=== PATIENT | female | born 1950 | race Caucasian/White ===

== ENCOUNTER 2016-05-21 09:44 | Outpatient (CLI) | payer OTHER ==
--- NOTE | 2016-05-21 10:55 | DIAGNOSTIC IMAGING REPORT ---
PROCEDURE: US ART LOWER EXT DOPPLER-LEFT INDICATION: FEMORAL BRUIT,LEFT TECHNIQUE: Color Doppler duplex imaging of the left groin and lower extremity arterial system was performed. COMPARISON: Lower extremity Doppler 12/13/2011 FINDINGS: Minimal plaque, no DVT in the area of pain. No hernia in the area of pain. VESSELS/ WAVEFORMS: Triphasic PEAK SYSTOLIC VELOCITIES: External iliac: 158 cm/second. Common femoral artery: 95 cm/second. Profunda femoral artery: 93 cm/second. Proximal superficial femoral artery: 85 cm/second. Mid superficial femoral artery: 124 cm/second. Distal superficial femoral artery: 96 cm/second. Popliteal artery: 54 cm/second. Proximal posterior tibial artery: 75 cm/second. Proximal anterior tibial artery: 40 eight cm/second. Distal posterior tibial artery: 109 cm/second. Dorsalis pedis artery: 34 cm/second. IMPRESSION: 1. Normal left groin and left lower extremity vascular study. 2. Minimal plaque. No venous thrombosis or hernia in the area of pain.
== END 2016-05-21 23:00 ==
LOC: US SRH 09:44
DX: R09.89 Other specified symptoms and signs involving the circulatory and respiratory systems (principal)